=== PATIENT | male | born 1995 | race Caucasian/White ===

== ENCOUNTER 2018-04-26 16:45 | Emergency (ER) | payer OTHER, SELFPAY ==
[2018-04-26 16:49] VITALS: BP 132/71; PULSE 81; RESP 14; TEMP 36.4; O2SAT 99; BMI 22.7
[2018-04-26] MEDS: ONDANSETRON 4 MG ODT SL (16:55)
[2018-04-26 19:12] VITALS: BP 103/54; PULSE 67; RESP 21; TEMP 36.9; O2SAT 100
[2018-04-26] MEDS: SODIUM CHLORIDE 0.9% 1,000 ML 1000 ML IV (19:15)
[2018-04-26 19:18] LABS: Add Manual Diff / Slide Review NO; Basophils Absolute Auto 100 /uL (0-100); Basophils Percent Auto 0.8 % (0-2); Eosinophils Absolute Auto 100 /uL (0-450); Eosinophils Percent Auto 0.6 % (2-4); Hematocrit 44.9 % (41-53); Hemoglobin 15.2 g/dL (13.5-17.5); Lymphocytes Absolute Auto 3100 /uL (1100-4500); Lymphocytes Percent Auto 38.4 % (25-40); Mean Corpuscular HGB Conc 33.9 % (30-36); Mean Corpuscular Hemoglobin 30.8 PG (26-34); Mean Corpuscular Volume 90.9 fL (80-100); Monocytes Absolute Auto 500 /uL (0-900); Monocytes Percent Auto 6.7 % (3-14); Neutrophils Absolute Auto 4300 /uL (1500-7000); Neutrophils Percent Auto 53.5 % (50-75); Platelet Count 256 X10^3/uL (150-400); Red Blood Cell Count 4.94 X10^6/uL (4.5-5.9); Red Cell Distribution Width 13.2 % (11.6-14.8); White Blood Cell Count 8.1 X10^3/uL (4.5-11.0)
[2018-04-26] MEDS: ONDANSETRON 4 MG/2 ML INJ IV (19:22)
[2018-04-26 19:24] LABS: Blood Urea Nitrogen 12 mg/dL (9-20); Calcium 9.5 mg/dL (8.4-10.2); Carbon Dioxide 26 mmol/L (22-32); Chloride 105 mmol/L (98-107); Estimated Glomerular Filt Rate > 60.0 mL/min (>60); Glucose 92 mg/dL (70-100); HEMOLYSIS < 15 (0-50); Potassium 3.7 mmol/L (3.4-5.1); Sodium 143 mmol/L (137-145)
[2018-04-26 21:05] VITALS: BP 110/64; PULSE 74; RESP 14; O2SAT 100
--- NOTE | 2018-04-27 00:18 | ED_ITS ---
HPI - Nausea/Vomiting/Diarrhea General Chief complaint: Nausea/Vomiting/Diarrhea Stated complaint: SUPER DIZZY,VOMITING,NAUSEA Time Seen by Provider: 04/26/18 18:16 Source: patient and family Mode of arrival: ambulatory Limitations: no limitations History of Present Illness HPI Narrative: 22-year-old male, nonsmoker an otherwise healthy presents to the emergency department with his significant other and a chief complaint 1 week of worsening generalized nausea and upset stomach and now decreased appetite and dizziness upon standing. He denies any pain and states he has no fever or chills. He states anything he eats makes him feel a bit nauseated and he admits to a decreased appetite as the result. He has been under tremendous stress at home in is less than 1 month from the of his 1st child recently started a new job. He admits to being an anxious individual in feels overwhelmed by the stress. He denies any desire to hurt himself or others and has no trouble caring for himself. MD complaint: nausea and vomiting Onset (ago): day(s) Description of Diarrhea: watery Associated Abdominal Pain: No Associated symptoms: other Related Data Previous Rx's Medication Instructions Recorded cyclobenzaprine 10 mg PO QHSP PRN #10 tab 11/08/15 ondansetron 4 mg PO TID-QID PRN #10 tab 04/26/18 Allergies Allergy/AdvReac Type Severity Reaction Status Date / Time azithromycin [AZITHROMYCIN] Allergy Unknown Verified 04/26/18 16:49 Review of Systems Constitutional Denies chills, Denies fever(s), Denies lethargy and Denies weakness Eyes Denies change in vision, Denies eye discharge, Denies irritation and Denies loss of vision ENT Ears, Nose, Mouth, and Throat: Denies change in voice, Reports dizziness, Denies neck pain and Denies sore throat Cardiovascular Denies chest pain, Denies irregular heart rhythm, Denies lightheadedness, Denies palpitations, Denies dyspnea, Denies dyspnea on exertion and Denies orthopnea Respiratory Denies cough, Denies dyspnea, Denies dyspnea on exertion and Denies wheezing Gastrointestinal Gastrointestinal: Denies abdominal pain, Denies change in bowel habits, Reports diarrhea, Reports nausea and Reports vomiting Genitourinary Denies hematuria, Denies flank pain, Denies urinary incontinence and Denies urinary urgency Musculoskeletal Denies neck pain Integumentary/Breasts Denies pruritus, Denies erythema, Denies rash and Denies wounds Neurologic Denies confusion, Reports dizziness, Denies loss of vision and Denies weakness Psychiatric Denies anxiety, Denies confusion, Denies depression, Denies homicidal ideation and Denies suicidal ideation Endocrine Denies palpitations Hematologic/Lymphatic Denies easy bruising Allergic/Immunologic Denies wheezing PFSH Social History Smoking Status: Never smoker Social History Smoking Status: Never smoker Exam Narrative Exam Narrative: GENERAL: 22-year-old male appears a bit anxious but otherwise no obvious or extreme distress HEAD: Atraumatic. Normocephalic. No temporal or scalp tenderness. EYES: Pupils equal round and reactive. Extraocular motions intact. No scleral icterus. No injection or drainage. ENT: Nose without bleeding, purulent drainage or septal hematoma. Throat without erythema, tonsillar hypertrophy or exudate. Uvula midline. Airway patent. NECK: Trachea midline. No JVD or lymphadenopathy. Supple, nontender, no meningeal signs. CARDIOVASCULAR: Regular rate and rhythm without murmurs, gallops, or rubs. RESPIRATORY: Clear to auscultation. Breath sounds equal bilaterally. No wheezes, rales, or rhonchi. GASTROINTESTINAL: Abdomen soft, non-tender, nondistended. No hepato- splenomegaly, or palpable masses. No guarding. EXTREMITIES: No clubbing, cyanosis, or edema. No joint tenderness, effusion, or edema noted. BACK: Nontender without deformity or crepitance. No flank tenderness. NEURO: AOx3. SKIN: No rash or erythema. GENERAL: This is a well-nourished, well-developed patient, in mild distress. HEAD: Atraumatic. Normocephalic. No temporal or scalp tenderness. EYES: Pupils equal round and reactive. Extraocular motions intact. No scleral icterus. No injection or drainage. ENT: Nose without bleeding, purulent drainage or septal hematoma. Throat without erythema, tonsillar hypertrophy or exudate. Uvula midline. Airway patent. NECK: Trachea midline. No JVD or lymphadenopathy. Supple, nontender, no meningeal signs. CARDIOVASCULAR: Regular rate and rhythm without murmurs, gallops, or rubs. RESPIRATORY: Clear to auscultation. Breath sounds equal bilaterally. No wheezes, rales, or rhonchi. GASTROINTESTINAL: Abdomen soft, non-tender, nondistended. No hepato- splenomegaly, or palpable masses. No guarding. EXTREMITIES: No clubbing, cyanosis, or edema. No joint tenderness, effusion, or edema noted. BACK: Nontender without deformity or crepitance. No flank tenderness. NEURO: AOx3. SKIN: No rash or erythema. Initial Vital Signs Initial Vital Signs: Vital Signs Temperature 97.6 F 04/26/18 16:49 Pulse Rate 81 04/26/18 16:49 Respiratory Rate 14 04/26/18 16:49 Blood Pressure 132/71 04/26/18 16:49 Pulse Oximetry 99 04/26/18 16:49 Course Orders Ordered: ED Orders 04/26/18 18:51 EKG-12 Lead Stat 04/26/18 19:00 Basic Metabolic Panel Stat Complete Blood Count AUTO DIFF Stat Discontinued Medications Sodium Chloride (Normal Saline 0.9%) 1,000 mls @ 1,000 mls/hr IV BOLUS ONE Stop: 04/26/18 19:28 Last Infusion: 04/26/18 20:24 Dose: 0 mls/hr Admin: 04/26/18 19:15 Dose: 1,000 mls/hr Ondansetron HCl (Zofran Odt) 4 mg SL NOW ONE Stop: 04/26/18 16:55 Last Admin: 04/26/18 16:55 Dose: 4 mg Ondansetron HCl (Zofran) 4 mg IV Q4HR PRN PRN Reason: Nausea And Vomiting Last Admin: 04/26/18 19:22 Dose: 4 mg Reevaluation(s) Reevaluation #1: Initially patient is a bit orthostatic and becomes dizzy upon standing. He feels tremendous improvement after the reassurance given at bedside and 2 L of fluid. He requests discharge Vital Signs - 8 hr 04/26/18 16:49 04/26/18 19:12 04/26/18 21:05 Temperature 97.6 F 98.5 F Pulse Rate 81 67 74 Respiratory Rate 14 21 14 Blood Pressure 132/71 110/64 Blood Pressure [Left Arm] 103/54 L Pulse Oximetry 99 100 100 MDM - Nausea/Vomiting/Diarrhea Lab Data Result diagrams: 04/26/18 19:00 04/26/18 19:00 Lab Results 02/20/19 02/20/19 Range/Units 19:00 19:00 WBC 8.1 (4.5-11.0) X10^3/uL RBC 4.94 (4.5-5.9) X10^6/uL Hgb 15.2 (13.5-17.5) g/dL Hct 44.9 (41-53) % MCV 90.9 (80-100) fL MCH 30.8 (26-34) PG MCHC 33.9 (30-36) % RDW 13.2 (11.6-14.8) % Plt Count 256 (150-400) X10^3/uL Neut % (Auto) 53.5 (50-75) % Lymph % (Auto) 38.4 (25-40) % Becker % (Auto) 6.7 (3-14) % Eos % (Auto) 0.6 L (2-4) % Baso % (Auto) 0.8 (0-2) % Neut # (Auto) 4300 (8669-4315) /uL Lymph # (Auto) 3100 (0846-8349) /uL Becker # (Auto) 500 (0-900) /uL Eos # (Auto) 100 (0-450) /uL Baso # (Auto) 100 (0-100) /uL Sodium 143 (137-145) mmol/L Potassium 3.7 (3.4-5.1) mmol/L Chloride 105 (98-107) mmol/L Carbon Dioxide 26 (22-32) mmol/L BUN 12 (9-20) mg/dL Creatinine 0.80 (0.66-1.25) mg/dL Estimated GFR > 60.0 (>60) mL/min BUN/Creatinine Ratio 15.0 (6-22) Glucose 92 (70-100) mg/dL Calcium 9.5 (8.4-10.2) mg/dL MDM Narrative Medical decision making narrative: Diagnoses such as gastroenteritis, urinary tract infection, stress/anxiety reaction are all considered. It seems most likely a consequence significant stress associated with upcoming delivery of Child and new job contributing to nausea which leads to some dizziness and the perfect storm that Discharge Plan Departure Patient Disposition: Home Clinical Impression: Acute dehydration, Anxiety Fatigue Qualifiers: Fatigue type: unspecified Qualified Code(s): R53.83 - Other fatigue Discharge Date/Time: 04/26/18 21:05 Interventions: ED Discharge Assessment Last Done: 04/26/18 21:05 Instructions: DI for Dehydration -- Adult Activity Restrictions/Additional Instructions: 1. Drink plenty of fluids with frequent small sips. 2. For the next 24 hours a clear liquid diet is advised. After that please employ a brat diet which would include bananas, rice, apples, toast. 3. Please take medications as directed. 4. Please follow-up with your doctor in the next 1-2 days. Call the office for an appointment. 5. Please return to the emergency Department for any worsening or persistent symptoms, such as increasing pain or fever. Prescriptions: New ondansetron 4 mg tablet,disintegrating 4 mg PO TID-QID PRN (Reason: nausea and vomiting) Qty: 10 RF: 0 No Action cyclobenzaprine 10 MG tablet 10 mg PO QHSP PRNQty: 10 RF: 0
== END 2018-04-26 21:05 | disposition home or self-care (01) ==
PROVIDERS: Emergency Provider Emergency Medicine
DX: F41.9 Anxiety disorder, unspecified (principal); E86.0 Dehydration
CPT/HCPCS: 36591; 80048; 85025; 93005; 96361; 96374; 99283; 99284; J2405